=== PATIENT | female | born 2005 | race Caucasian/White ===

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

== ENCOUNTER 2025-01-04 16:14 | Emergency (ER) | payer MEDICAID ==
[~2025-01-04] VITALS: Ht 157.5 cm; Wt 85.5 kg
[~2025-01-04 16:14] MED LIST: ONDA-243 PO
--- NOTE | 2025-01-04 20:22 | Physician Documentation ---
History of Present Illness ~ Chief Complaint: Rash Stated Complaint: RASH ON CHEST Time Seen by MD: 18:09 OK to notify your PCP?: Yes Primary Medical Doctor: None Source: patient, family HPI Patient is seen today with complaints of itchy rash on her chest and arms while at work today. Patient states she came in today after being directed by her work. Patient denies any difficulty breathing shortness of breath or chest pain or abdominal pain or nausea, vomiting, diarrhea. Patient does admit to using a new detergent and also states he did eat something little different just prior to going into work today. Patient has no other concern or complaint at this time. 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 Medication Reconciliation Allergies: Coded Allergies: No Known Allergies (Unverified , 01/04/25) Scheduled PRN ONDANSETRON ODT 4mg tablet (Ondansetron Odt), 1 TAB PO Q6H PRN PRN for nausea/vomiting Review of Systems Constitutional: Denies: chills, fever, weakness Eyes: Denies: pain, blurred vision ENT: Denies: ear pain, nose pain, throat pain, mouth pain Respiratory: Denies: cough, shortness of breath Cardiovascular: Denies: chest pain, palpitations Gastrointestinal: Denies: abdominal pain, nausea, vomiting Genitourinary: Denies: burning, dysuria Female Genitalia: Denies: vaginal discharge, pelvic pain Neurological: Denies: headache, dizziness Musculoskeletal: Denies: pain, swelling Integumentary: Denies: rash, lesions Allergic/Immunologic: Denies: hives, itching Hematologic/Lymphatic: Denies: no symptoms reported Psychiatric: Denies: depression, anxiety Physical Exam Vital Signs: Temperature: 98.6, Source: Oral, Heart Rate: 94, Respiratory Rate: 16, BP: 130/55, Pulse Oximetry: 98, Weight: 85.500 Physical Exam General: Awake and Alert, no acute distress. HEENT: Conjunctiva pink, Sclera clear, Mucus Membranes moist. Neck: Supple without masses and tenderness. Resp: Unlabored. Lungs clear to auscultation bilaterally. Heart: Regular Rate and rhythm, normal S1 and S2 without murmur, rub or gallop. Abdomen: Soft and non tender no organomegaly Extremities: No cyanosis,clubbing or edema. Skin: Warm and Dry. Patient does have very mild very small erythematous papules on backs of her hands that are not raised and she has no high formation and no sign of significant rash at this time. Progress Results/Orders Results/Orders Vital Signs 01/04/25 16:22 Temp 98.6 Pulse 94 Resp 16 B/P (MAP) 130/55 Pulse Ox 98 Medical Decision Making Findings Patient is seen today with complaints of itchy rash on her chest and arms while at work today. Patient states she came in today after being directed by her work. Patient denies any difficulty breathing shortness of breath or chest pain or abdominal pain or nausea, vomiting, diarrhea. Patient does admit to using a new detergent and also states he did eat something little different just prior to going into work today. Patient has no other concern or complaint at this time. 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 Patient likely had allergic reaction possibly from different detergent or possible food allergy. Patient will monitor for recurrence of symptoms and will follow up with primary care as soon as possible for further eval and treatment. Return to ED with any worsening, concerning or changing symptoms. Departure Disposition: 01 HOME / SELF CARE / HOMELESS Impression: Primary Impression: Skin irritation Additional Impression: Rash Condition: Improved Discharge Instructions: Contact Dermatitis Additional Instructions: Patient likely had allergic reaction possibly from different detergent or possible food allergy. Patient will monitor for recurrence of symptoms and will follow up with primary care as soon as possible for further eval and treatment. Return to ED with any worsening, concerning or changing symptoms. Referrals: NO PRIMARY CARE PROVIDER (PCP) Signature Scribe Signature: No scribe Attestation: No scribe VIANCA [place] PAC Jan 04, 2025 20:22
[2025-01-04 20:31] VITALS: BP 126/58; PULSE 89; RESP 16; TEMP 98.6; O2SAT 99
== END 2025-01-04 20:32 | disposition home or self-care (01) ==
LOC: ER 16:14
DX: R21 Rash and other nonspecific skin eruption (principal)
CPT/HCPCS: 99282